=== PATIENT | female | born 1985 | race African-American/Black ===

== ENCOUNTER 2018-12-02 07:55 | Emergency (ER) | payer MEDICARE, OTHER ==
[~2018-12-02] VITALS: Ht 162.6 cm; Wt 65.0 kg
[2018-12-02 08:44] LABS: HEMOGLOBIN. 11.4 g/dL (12.0-16.0); MEAN CORPUSCULAR HEMOGLOBIN 23.1 pg (28.0-32.0); MEAN CORPUSCULAR VOLUME 72.7 fL (81.0-99.0); MEAN PLATELET VOLUME 8.2 fl (7.4-10.4); PLATELET 306 x1000/uL (130-400); RED BLOOD CELL COUNT 4.95 mill/uL (4.2-5.4); RED CELL DISTRIBUTION WIDTH 22.3 % (11.6-14.6)
[2018-12-02 08:50] LABS: CHLORIDE 95 mEq/L (98-107)
[2018-12-02 09:06] LABS: HCG SCREEN NEGATIVE; PLATELET ESTIMATE NORMAL
[2018-12-02 09:12] LABS: PROTHROMBIN TIME 10.4 sec (9.6-11.0)
[2018-12-02 10:00] VITALS: BP 158/89
== END 2018-12-02 10:50 | disposition home or self-care (01) ==
LOC: ER 07:55
DX: R11.2 Nausea with vomiting, unspecified (principal); R53.1 Weakness; D64.9 Anemia, unspecified; E11.649 Type 2 diabetes mellitus with hypoglycemia without coma; I12.0 Hypertensive chronic kidney disease with stage 5 chronic kidney disease or end stage renal disease; N18.6 End stage renal disease; N18.9 Chronic kidney disease, unspecified; Z79.4 Long term (current) use of insulin; Z88.8 Allergy status to other drugs, medicaments and biological substances; Z99.2 Dependence on renal dialysis
CPT/HCPCS: 36415; 82962; 83735; 84484; 84703; 93005; 99284